=== PATIENT | male | born 1985 | race Caucasian/White ===

== ENCOUNTER 2025-05-19 12:27 | Outpatient (REF) | payer MEDICARE, MEDICAID, SELFPAY ==
[2025-05-19 16:36] LABS: ALT 25 U/L (10-49); AST 22 U/L (<34); Albumin 4.3 g/dL (3.4-5.0); Alkaline Phosphatase 78 U/L (46-116); Anion Gap 9.4 mmol/L (3-11); BUN 15 mg/dL (9-23); Bilirubin, Total 0.80 mg/dL (0.2-1.2); CO2 27.6 mmol/L (20.0-31.0); Calcium 9.2 mg/dL (8.3-10.6); Chloride 105 mmol/L (98-107); Cholesterol 174 mg/dL (<200); Glucose 76 mg/dL (74-106); HDL Cholesterol 39 mg/dL (>40); Potassium 4.3 mmol/L (3.5-5.1); Sodium 142 mmol/L (136-145); Total Protein 7.3 g/dL (5.7-8.2)
== END 2025-05-19 12:28 | disposition home or self-care (01) ==
LOC: NCHCN 12:27
PROVIDERS: PCP Internal Medicine; Visit Provider Family Medicine
DX: Z13.1 Encounter for screening for diabetes mellitus (principal); Z13.220 Encounter for screening for lipoid disorders
CPT/HCPCS: 80053; 80061